=== PATIENT | male | born 1970 | race Caucasian/White ===

== ENCOUNTER 2021-04-16 11:54 | Emergency (ER) | payer MEDICARE, SELFPAY ==
--- NOTE | 2021-04-16 12:03 | XR_ITS ---
WS: [id number] Exam: XR knee LT 3V* [id number] Date/Time of Exam: 04/16/2021 12:03 PM Reason For Exam: pain No fracture or dislocation noted. Slight degenerative thinning of the medial joint compartment. Mild calcification of the lateral meniscus. Postoperative changes that suggest prior ACL reconstruction. N o joint effusion. XR/XR knee LT 3V* [id number] IMPRESSION: 1. Minimal degenerative changes and mild chondrocalcinosis. 2. Status post ACL reconstruction. No fracture or joint effusion.
[2021-04-16 12:41] VITALS: BP 130/79; PULSE 84; RESP 18; TEMP 36.8; O2SAT 97; BMI 26.6
--- NOTE | 2021-04-16 13:55 | W.ED.EXTPRO ---
HPI - Extremity Problem General: Chief complaint: Extremity Injury, Lower Stated complaint: L KNEE PAIN Time Seen by Provider: 04/16/21 13:50 Source: patient Mode of arrival: ambulatory Limitations: no limitations History of Present Illness: HPI Narrative: Patient is a 50-year-old male who presents to ED today for evaluation of left knee pain. Patient states several years ago he underwent ACL reconstruction and states they also repaired something medially (is not sure whether it was his MCL or meniscus). Patient states he had been doing well until yesterday when he awoke with left knee pain. He is not sure if maybe he twisted it wrong in his sleep. No other known injury or trauma. He has not noticed any swelling. No color or temperature changes to the joint or extremity. Patient continues to be ambulatory on the joint but with some discomfort. MD Complaint: joint pain Onset (ago): day(s) Pain Consistency: constant Location: left and lower extremity Radiation: none Relieving factors: immobilization Exacerbating factors: weight bearing and walking Associated symptoms: Reports no associated symptoms; Deny chest pain or fever(s) Review of Systems Const: Denies: fever(s), chills or body aches Card: Denies: chest pain Resp: Denies: dyspnea Musc: Reports: joint pain (L knee); Denies: extremity pain, extremity swelling, joint swelling, joint redness, joint warmth or limited range of motion Neuro: Denies: numbness in extremities or sensory changes Physical Exam Const: COMMON NORMALS: no acute distress and no limitations GENERAL APPEARANCE: cooperative Extremity: COMMON NORMALS: full ROM, capillary refill normal, no joint enlargement, no clubbing, cyanosis or edema, no calf tenderness and no pedal edema GENERAL: Yes normal exam except as noted LEFT LOWER EXTREMITY: Yes knee joint (TTP medially; no swelling/effusion noted) Left knee: Yes ROM (normal) and Yes neurovascular exam (normal) Neuro: COMMON NORMALS: moves all extremities, no focal motor deficits, no sensory deficits noted and gait normal Skin: COMMON NORMALS: no rashes or lesions noted GENERAL SKIN EXAM: no rashes or lesions noted TRAUMA: no lacerations or abrasions Course Vital Signs: Vital signs: Vital Signs Temperature 98.2 F 04/16/21 12:41 Pulse Rate 84 04/16/21 12:41 Respiratory Rate 18 04/16/21 12:41 Blood Pressure 130/79 04/16/21 12:41 Pulse Oximetry 97 04/16/21 12:41 MDM - Extremity (Nontraumatic) MDM Narrative: Medical decision making narrative: Will have CM set him up with a PCP for further evaluation and treatment. Imaging Data^: XR L knee: Radiologist's impression: [address] [place] [address] XRay Report Signed Patient: Bobby Alvarado Unit #: [id number] : 1970 Age/Sex: 50 / M ADM Date: 04/16/21 Loc: ER Room/Bed: Attending Dr: Ordering Provider/Ordering MD: Loren Ruffin Date of Service: 04/16/21 Procedure(s): XR knee LT 3V* [id number] Accession Number(s): [id number] Report Number: [id number] WS: [id number] Exam: XR knee LT 3V* [id number] Date/Time of Exam: 04/16/2021 12:03 PM Reason For Exam: pain No fracture or dislocation noted. Slight degenerative thinning of the medial joint compartment. Mild calcification of the lateral meniscus. Postoperative changes that suggest prior ACL reconstruction. No joint effusion. XR/XR knee LT 3V* [id number] IMPRESSION: 1. Minimal degenerative changes and mild chondrocalcinosis. 2. Status post ACL reconstruction. No fracture or joint effusion. Dictated By: Olman Joya DO Signed By: Olman Joya DO Signed Date/Time: 04/16/21 1217 DD/ 1215 Discharge Plan Discharge Patient Disposition: Home Clinical Impression: Left medial knee pain Condition: Stable Discharge Orders: Discharge ED (Routine); Ordered 04/16/21 Ordered By: Loren Ruffin Patient Instructions: Knee Pain (ED) Coding Level of Care Code ED Emergency Medical Tech for Patricia Arreola
--- NOTE | 2021-04-18 11:19 | DCPLANNER ---
manager general had message to speak with patient about getting established with a primary care physician. manager general called phone number [phone], unable to speak with patient or leave a voicemail at this time.
== END 2021-04-16 14:50 | disposition home or self-care (01) ==
PROVIDERS: Emergency Provider Physician Assistant
DX: M25.562 Pain in left knee (principal)
CPT/HCPCS: 73562; 99282

== ENCOUNTER 2022-05-08 11:26 | Outpatient (CLI) | payer MEDICARE, SELFPAY ==
--- NOTE | 2022-05-08 11:45 | MR_ITS ---
WS: [id number] MRI LEFT KNEE HISTORY: M25.562 - Pain in left knee, prior ACL reconstruction. COMPARISON: Knee radiograph 04/16/2021 Anterior cruciate ligament: The ACL reconstruction does appear intact. Seen on the axial imaging is a very small amount of increased T2 signal adjacent to the mid ACL but no full-thickness tear. Posterior cruciate ligament: Intact with posterior buckling. Medial collateral ligament: Intact. Posterior lateral corner structures: Intact. Medial menisci: Anterior horn is normal. Abnormal posterior horn. There is abnormal signal and volume loss in the posterior horn. There is a lobulated soft tissue extending into the meniscal root with a bnormal signal. Suspect this is probably flipped portion of the meniscus or torn fragment dislocated into the meniscal root. Otherwise abnormal signal and volume loss throughout large portion of the pos terior horn. Lateral meniscus: Intact. Normal signal, size and shape. Extensor mechanism: Distal quadriceps tendon and patellar tendons are intact. Fluid and soft tissue: Very minimal joint effusion. No Arguello's cyst. Osseous and articular structures: Patellofemoral compartment: Normal. Medial compartment: Very mild narrowing of the medial compartment with thinning and fissuring of the cartilage. There is a very small amount of marrow edema in the medial femoral condyle which may be re lated to some instability or prior trauma. No fracture. Lateral compartment: Negative. MR/MR knee LT wo con* [id number] IMPRESSION: 1. Prior ACL reconstruction appears intact with no full-thickness tear. 2. Abnormal posterior horn medial meniscus. Complex tear with flipped fragment or loose fragment extending into the meniscal root. 3. Very small amount of marrow edema in the medial femoral condyle.
== END 2022-05-08 11:27 | disposition home or self-care (01) ==
PROVIDERS: Visit Provider Nurse Practitioner Family
DX: Z98.890 Other specified postprocedural states (principal); S83.232A Complex tear of medial meniscus, current injury, left knee, initial encounter; X58.XXXA Exposure to other specified factors, initial encounter
CPT/HCPCS: 73721